=== PATIENT | female | born 1970 | race Caucasian/White ===

== ENCOUNTER → 2019-11-19 08:47 | Outpatient (CLI) | payer MEDICARE, MEDICAID, SELFPAY ==
--- NOTE | 2019-11-19 08:55 | CT_ITS ---
PROCEDURE: CT ABDOMEN PELVIS WO CON CLINICAL INDICATION: ABD PAIN Mid epigastric pain COMPARISON: No exams were available for comparison TECHNIQUE: Axial images obtained with sagittal and coronal reformats. All CT scans at the facility use one or more dose reduction, viz: automated exposure control, ma/kV adjustment per patient size (including targeted exams where dose is matched to indication, i.e. head), or iterative reconstruction technique. FINDINGS: LOWER THORAX: Patchy ground-glass density in the right lung base posteriorly nonspecific. Minimal dependent changes in the lung bases. ABDOMEN & PELVIS: Fatty liver. The spleen, adrenal glands, and pancreas have an unremarkable appearance. No renal or ureteral calculi. No evidence of appendicitis or diverticulitis. There is a mild amount of retained colonic feces. No intestinal obstruction or free air. There is mild diffuse subcutaneous edema. There are degenerative changes in the lumbar spine. IMPRESSION: 1. Nonspecific patchy ground-glass density right lower lobe posteriorly which could be due to small area of infiltrate.. 2. Fatty liver. 3. Mild constipation. 4. No acute abdominal or pelvic findings. Dictated by: Chago Dotson MD 11/20/2019 08:54 Electronically signed by Chago Dotson MD in [place] 11/20/2019 08:54
== END ==
PROVIDERS: PCP Family Medicine; Visit Provider Family Medicine
DX: R10.9 Unspecified abdominal pain (principal)
CPT/HCPCS: 74176

== ENCOUNTER 2020-03-12 10:58 | Emergency (ER) | payer MEDICARE, MEDICAID, SELFPAY ==
[2020-03-12 11:07] VITALS: BP 147/73; PULSE 77; RESP 20; TEMP 36.5; O2SAT 99; BMI 48.8
--- NOTE | 2020-03-12 11:15 | XR_ITS ---
PROCEDURE: XR WRIST RT MIN 3V CLINICAL INDICATION: fall, injury Posttraumatic pain COMPARISON: No exams were available for comparison FINDINGS: There is a nondisplaced longitudinal fracture involving the distal aspect of the radius along its ulnar margin. This extends into the articular surface. In addition, there is a transverse fracture of the distal radius which is nondisplaced. Osteoarthritic changes are present at the scapho trapezium joint Other findings:None. IMPRESSION: Nondisplaced distal radial fracture with intra-articular involvement Dictated b Chago Dotson MD 03/12/2020 11:30 Chago Dotson MD in [place] 03/12/2020 11:30
--- NOTE | 2020-03-12 11:34 | HMH.EDEXTP ---
ED Disposition Clinical Impression: Wrist sprain Disposition: Home, Self-Care Condition on Discharge: Good Instructions: DI for Wrist Strain Referrals: Teresa De Los Santos [Primary Care Provider] - - Critical Care Critical Care Time: No Attestation: On 03/12/20, the high probability of a clinically significant, sudden or life threatening deterioration of the following system(s) required my full and direct attention, intervention and personal management. The time I documented below is in addition to time spent performing reported procedures but includes the following listed in this critical care notation. Medical Decision Making - Medical Records Medical records reviewed: Yes: I reviewed the patient's medical records. - Malcolm Inquiry Pt receiving controlled substance: No Vital Signs: 03/12/20 11:07 Temperature 97.7 F Temperature Source Oral Pulse Rate [Left Brachial] 77 Respiratory Rate 20 Blood Pressure [Left Arm] 147/73 H Blood Pressure Mean [Left Arm] 97 Blood Pressure Source [Left Arm] Automatic Cuff Blood Pressure Position [Left Arm] Sitting 02 Sat by Pulse Oximetry 99 Oxygen Delivery Method Room Air - Lab Data Lab results reviewed: Yes: I reviewed the patient's lab results. - Radiology Data #1 Image(s): Wrist Preliminary Findings: Normal/NAD Extremity Problem HPI - General Chief complaint: Extremity Problem,Nontraumatic Stated complaint: AO fall injured R wrist/arm 03/10 Time Seen by Provider: 03/12/20 11:33 Mode of Arrival: Ambulatory Limitations: No Limitations Description of Symptoms (Recalled from ER Triage Doc. by RN): fall evening landed on right wrist, swollen at wrist and up forearm - History of Present Illness HPI Narrative: 49-year-old female presents the emergency room with right wrist pain. Apparently she was in the kitchen and fell with an outstretched hand and injured her wrist on Friday. Today she presents with wrist pain or swelling. She states that the pain is 4-10 and sharp. Patient states exacerbating factors include movement alleviating factors include rest.Patient denies any recent cough or shortness of breath, patient denies any sore throat or headache, patient denies any loss of taste or smell, patient denies any malaise or fatigue, patient denies any abdominal pain nausea vomiting or diarrhea. - Related Data Allergies Allergy/AdvReac Type Severity Reaction Status Date / Time pseudoephedrine Allergy Intermediate Unverified 07/22/17 15:34 [PSEUDOEPHEDRINE] [facility] History - Hepatitis A Screen Drug use history?: No High risk sexual behaviors?: No History of sexually transmitted infection?: No Currently employed?: No Childcare worker?: No Do you have indoor plumbing?: Yes Do you have electricity?: Yes Attestation statement:: This patient has been screened for Hepatitis A risk factors. I have reviewed the patient's past medical history: Yes ROS Obtained: Yes All systems reviewed & no additional complaints - Constitutional Constitutional: Reports system reviewed and no additional complaints, except as docu - Eyes Eyes: Reports system reviewed and no additional complaints, except as docu - ENT Ears, Nose, Mouth, and Throat: Reports system reviewed and no additional complaints, except as docu - Cardiovascular Cardiovascular: Reports system reviewed and no additional complaints, except as docu - Respiratory Respiratory: Yes system reviewed and no additional complaints, except as docu - Gastrointestinal Gastrointestingal: Reports: system reviewed and no additional complaints, except as docu - Genitourinary Male Genitourinary: Reports system reviewed and no additional complaints, except as docu Female Genitourinary: Reports system reviewed and no additional complaints, except as docu - Musculoskeletal Musculoskeletal: Reports system reviewed and no additional complaints, except as docu - Integumentary/Breasts Skin/Breast:
[2020-03-12 12:03] VITALS: BP 132/70; PULSE 68; RESP 16; TEMP 36.6; O2SAT 98
== END 2020-03-12 12:03 | disposition home or self-care (01) ==
PROVIDERS: Emergency Provider Family Medicine; PCP Family Medicine
DX: S63.501A Unspecified sprain of right wrist, initial encounter (principal); W01.0XXA Fall on same level from slipping, tripping and stumbling without subsequent striking against object, initial encounter; Y92.010 Kitchen of single-family (private) house as the place of occurrence of the external cause; Z88.8 Allergy status to other drugs, medicaments and biological substances
CPT/HCPCS: 29125; 73110; 99283

== ENCOUNTER 2020-05-27 19:22 | Emergency (ER) | payer MEDICARE, MEDICAID, SELFPAY ==
[2020-05-27 19:36] VITALS: BP 117/63; PULSE 80; RESP 15; O2SAT 96; BMI 49.1
[2020-05-27 19:59] VITALS: BP 117/63; PULSE 80; RESP 15; TEMP 37.8; O2SAT 96; BMI 49.1
--- NOTE | 2020-05-27 20:12 | HMH.EDUTC ---
[facility] [place] Clinical Impression: UTI (urinary tract infection) Qualifiers: Urinary tract infection type: site unspecified Hematuria presence: without hematuria Qualified Code(s): N39.0 - Urinary tract infection, site not specified Low back pain with sciatica Qualifiers: Chronicity: unspecified Back pain laterality: right Sciatica laterality: sciatica of right side Qualified Code(s): M54.41 - Lumbago with sciatica, right side Disposition: Home, Self-Care Condition on Discharge: Good Instructions: Urinary Tract Infection, Sciatica, DI for Sciatica Additional Instructions: Encourage her to drink plenty of fluids. Take the medications as prescribed. Prescriptions: Sulfamethoxazole/Trimethoprim [Bactrim DS tablet] 1 each PO BID 7 Days #14 tab [facility]: [id number] predniSONE [Prednisone 20mg Tab] 20 mg PO BID 3 Days #6 tab Transmission Status: Pending to [id number] Referrals: Teresa De Los Santos [Primary Care Provider] - Time of Disposition: 20:21 Medical Decision Making - Medical Records Medical records reviewed: No: I reviewed the patient's medical records. - Malcolm Inquiry Pt receiving controlled substance: No Vital Signs: 05/27/20 19:36 05/27/20 19:59 Temperature 100.0 F H Temperature Source Oral Pulse Rate [Right Brachial] 80 80 Respiratory Rate 15 15 Blood Pressure [Right Arm] 117/63 117/63 Blood Pressure Mean [Right Arm] 81 81 Blood Pressure Source [Right Arm] Automatic Cuff Automatic Cuff Blood Pressure Position [Right Arm] Sitting Sitting 02 Sat by Pulse Oximetry 96 96 Oxygen Delivery Method Room Air Room Air - Lab Data Lab results reviewed: Yes: I reviewed the patient's lab results. [facility] H[place] - General Stated complaint: Back/buttox pain Time Seen by Provider: 05/27/20 20:13 Mode of Arrival: Ambulatory Source of Information: Patient, Parent(s) Limitations: No Limitations Description of Symptoms (Recalled from Triage Doc. by RN): PATIENT C/O PAIN TO LEFT LOWER BACK THAT RADIATES THROUGH LEFT HIP AND DOWN LEFT LEG X 2 DAYS. HEENT Symptoms (Recalled from RN notes): No Resp Symptoms (Recalled from RN notes): No Skin Symptoms (Recalled from RN notes): No MS Symptoms (Recalled from RN notes): Yes Functional Status (Recalled from RN notes): WNL - History of Present Illness Provider Complaint: Her mother states that the patient has c/o low back pain that radiates down her left leg. This started around 2 days ago. - Related Data Previous Rx's Medication Instructions Recorded Sulfamethoxazole/Trimethoprim 1 each PO BID 7 Days #14 tab 05/27/20 [Bactrim DS tablet] predniSONE [Prednisone 20mg 20 mg PO BID 3 Days #6 tab 05/27/20 Tab] Allergies Allergy/AdvReac Type Severity Reaction Status Date / Time pseudoephedrine Allergy Intermediate Unverified 07/22/17 15:34 [PSEUDOEPHEDRINE] - Worker's Comp Is this a Worker's Comp case?: No [facility] History - Hepatitis A Screen Drug use history?: No High risk sexual behaviors?: No History of sexually transmitted infection?: No Currently employed?: No Childcare worker?: No Do you have indoor plumbing?: Yes Do you have electricity?: Yes Attestation statement:: This patient has been screened for Hepatitis A risk factors. I have reviewed the patient's past medical history: Yes - Social History Alcohol Intake: never Occupational Status: other ROS Obtained: Yes All systems reviewed & no additional complaints - Constitutional Constitutional: Denies chills, Denies fever(s), Reports poor appetite, Denies malaise - Genitourinary Male Genitourinary: Reports as per HPI - Musculoskeletal Musculoskeletal: Reports as per HPI - Integumentary/Breasts Skin/Breast: Denies redness, Denies rash, Denies wounds Physical Exam - General General appearance: alert, in no apparent distress - Head Head exam: atraumatic, normocephalic, normal inspection - Eye Eye exam: Pres
[2020-05-27 20:27] LABS: Apearance,Urine Cloudy (Clear); Color,Urine Yellow (Yellow)
[2020-05-27 20:28] LABS: Bilirubin,Urine Negative (Negative); Blood, Urine Trace (Negative); Glucose,Urine (UA) Negative (Negative); Ketones,Urine Negative (Negative); Protein,Urine Negative (Negative); Specific Gravity, Urine <= 1.005 (1.005-1.030); Urobilinogen,Urine 0.2 EU/dl (0.2)
[2020-05-27 20:29] LABS: UTC Leukocyte Esterase,Urine Trace (Negative); UTC Nitrate,Urine Negative (Negative)
[2020-05-27 20:30] VITALS: BP 117/63; PULSE 80; RESP 15; TEMP 37.7; O2SAT 96
== END 2020-05-27 20:42 | disposition home or self-care (01) ==
PROVIDERS: Emergency Provider Nurse Practitioner Family; PCP Family Medicine
DX: N30.00 Acute cystitis without hematuria (principal); B96.20 Unspecified Escherichia coli [E. coli] as the cause of diseases classified elsewhere; M54.41 Lumbago with sciatica, right side
CPT/HCPCS: G0463; 81003; 87086; 87088; 87186; 87880; 99201

== ENCOUNTER → 2021-05-04 15:37 | Outpatient (CLI) | payer MEDICARE, MEDICAID, SELFPAY ==
--- NOTE | 2021-05-04 15:49 | XR_ITS ---
PROCEDURE: XR KNEE LT 3V CLINICAL INDICATION: PAIN IN LEFT KNEE COMPARISON: No exams were available for comparison FINDINGS: No fracture or dislocation. No lytic or blastic change. There is normal mineralization. There are severe osteoarthritic changes at the patellofemoral joint with moderate osteoarthritis at the medial lateral compartment with chondrocalcinosis the lateral meniscus. Mildly prominent osteophytes are present there is mild lateral patellar subluxation. Along the superior aspect of the patella there is some irregular calcification which could represent a loose body or an old fracture fragment. Other findings:None. IMPRESSION: Osteoarthritis as described above with chondrocalcinosis. 13 mm calcific density along the superior aspect of the patella laterally which could represent an old fracture or loose fragment. Dictated by: Chago Dotson MD 05/04/2021 16:38 Chago Dotson MD in [place] 05/04/2021 16:38
--- NOTE | 2021-05-04 15:49 | XR_ITS ---
PROCEDURE: XR KNEE RT 3V CLINICAL INDICATION: PAIN IN RIGHT KNEE COMPARISON: No exams were available for comparison FINDINGS: No fracture or dislocation. No lytic or blastic change. There is normal mineralization. Moderate tricompartmental osteoarthritic change with medial and lateral meniscal chondrocalcinosis. There is mild lateral patellar subluxation. Other findings:None. IMPRESSION: Moderate osteoarthritic change Dictated by: Chago Dotson MD 05/04/2021 16:12 Chago Dotson MD in [place] 05/04/2021 16:12
== END ==
PROVIDERS: PCP Family Medicine; Visit Provider Family Medicine
DX: M25.562 Pain in left knee (principal); M25.561 Pain in right knee
CPT/HCPCS: 73562

== ENCOUNTER 2021-06-26 08:00 | Outpatient (RCR) | payer MEDICARE, MEDICAID, SELFPAY ==
--- NOTE | 2021-05-25 11:58 | HMH.PTOPEV ---
PT Outpatient Evaluation Rehab PT Outpatient Evaluation Start: 05/25/21 10:34 Freq: Status: Active Protocol: Document 05/25/21 10:34 NOEMI (Rec: 05/25/21 11:58 [email or web address] [id number]) Electronically Signed By Leland Croft, PT 05/25/21 10:34 Outpatient Therapy Subjective History Subjective History Pt.'s mother([place])/caregiver was present at the time of initial eval. Pt. is a 50 year old female who presents to [facility] w/ c/o chronic and constant LLE knee/calf/grt. toe P! of insidious onset about a year ago. Pt. reports having an appointment w/ her Orthopedic Surgeon which diagnosed pt. w/ bilateral genu valgus or knocked-knees per pt. report. Pt. also reports having Cortisone injections in bilateral knees that provided some symptom relief. Pt. also reports previously being diagnosed w/ gout. Recent diagnostic imaging(radiograph) positive for B/L knee OA. Pt. describes her symptoms in her calf to her great toe as numb that worsens when she goes shopping w/ her mom at [employer]. Pt. also reports increased LBP! during shopping with her mom at [employer], states having to hold onto her back. Pt. denies having symptoms into her RLE. Pt. RTMD 2021. Current medications include Metformin, Gabapentin, and Vitamin D. PMH includes Gout, Type II diabetes, OA, Seasonal Allergies, Ventricular Septal Defect(VSD) surgery, Tonsillectomy, Adenoidectomy, and a Tympanoplasty. Chief Complaint Pain,Paresthesia Symptom Type Throb,Sharp,Numbness,Shooting Symptoms Relieved By Rest/Positioning,Prescription Meds Symptoms Aggravated By Standing,Twisting,Walking Prior Functional Limitations
== END 2021-07-31 08:48 | disposition home or self-care (01) ==
LOC: PT.CARL 08:00
PROVIDERS: PCP Family Medicine; Visit Provider Orthopaedic Surgery
DX: M17.0 Bilateral primary osteoarthritis of knee (principal)
CPT/HCPCS: 97110; 97140; 97163

== ENCOUNTER 2025-08-01 14:00 | Outpatient (RCR) | payer MEDICARE, MEDICAID, SELFPAY | END 2025-08-01 23:59 | disposition home or self-care (01) | LOC: PT.CARL 14:00 | PROVIDERS: PCP Family Medicine; Visit Provider Podiatrist Foot & Ankle Surgery | DX: M76.822 Posterior tibial tendinitis, left leg (principal) | CPT/HCPCS: 97035; 97110; 97162; 97530 ==